=== PATIENT | male | born 1980 | race Caucasian/White ===

== ENCOUNTER 2019-10-16 11:37 | Emergency (ER) | payer OTHER ==
--- NOTE | 2019-10-16 12:34 | ED ---
HPI Chest Pain - HPI Summary HPI Summary: The patient is a 39-year-old male presenting to [facility] with a chief complaint of right anterior chest pain onset over the last 5-6 weeks. He reports that in August 2019, he had an abscess in the left neck, which needed emergency surgery, and then he was later diagnosed with bacteremia. While staying in the hospital, he began to develop pain in the right chest. He was diagnosed with CHF but of unknown etiology. He notes that he contracted the infection after IV drug use. The pain in the chest, described as a lump, has worsened in the last few weeks. The pain is currently rated 5/10 in severity. Pain is aggravated by movement of the RUE. He denies any fevers, chills, calf swelling or pain. There is no known injury to the chest, he does not have a history of broken ribs on the right or endocarditis/pericarditis, and he has not injected IV drugs into the chest wall. IV drugs last used two weeks ago. He endorses a cough and intermittent painful respirations, which he attributes to smoking cessation two weeks ago. He states that he had Tylenol, Ibuprofen, and Suboxone this morning. Past medical history also significant for cervical vertebral fractures resulting in RUE swelling which he was seen at [place] for in 2016. Former smoker, no EtOH, no current substance use. Medications reviewed. Allergies noted. - History of Current Complaint Chief Complaint: EDChestWallPain Time Seen by Provider: 10/16/19 12:11 Hx Obtained From: Patient Onset/Duration: Started Weeks Ago, Worse Since - last 2-3 weeks Timing: Intermittent Initial Severity: Mild Current Severity: Moderate Pain Intensity: 5 Pain Scale Used: 0-10 Numeric Chest Pain Location: Right Anterior Chest Pain Radiates: No Character: Heaviness Aggravating Factor(s): Movement - of RUE Alleviating Factor(s): Nothing Associated Signs and Symptoms: Positive: Chest Pain, Cough, Other: - painful respirations. Negative: Fever, Chills, Calf Pain/Swelling - Allergy/Home Medications Allergies/Adverse Reactions: Allergies Allergy/AdvReac Type Severity Reaction Status Date / Time No Known Allergies Allergy Verified 10/16/19 12:41 Home Medications: Home Medications Acetaminophen TAB* [Tylenol TAB*] 325 mg PO Q4H PRN 10/16/19 [History Confirmed 10/16/19] Atomoxetine(NF) [Strattera(NF)] 80 mg PO DAILY 10/16/19 [History Confirmed 10/16] Buprenorp/Nalox 2-0.5 MG SL TB [Suboxone 2-0.5 mg SL TAB*] 1 tab SL DAILY [History Confirmed 10/16/19] Escitalopram * [Lexapro *] 20 mg PO DAILY 10/16/19 [History Confirmed 10/16/19] Ibuprofen TAB* [Advil TAB*] 200 mg PO Q6H PRN 10/16/19 [History Confirmed ] Metoprolol Succinate XL TAB* [Toprol XL TAB*] 50 mg PO DAILY 10/16/19 [History Confirmed 10/16/19] Multivitamins/Minerals TAB* [Theragran/minerals TAB*] 1 tab PO DAILY 10/16/19 [ History Confirmed 10/16/19] Nicotine PATCH 21 MG/24 HR* 21 mg TRANSDERM DAILY 10/16/19 [History Confirmed ] Pravastatin (NF) [Pravachol (NF)] 20 mg PO BEDTIME 10/16/19 [History Confirmed 10/16/19] PMH/Surg Hx/FS Hx/Imm Hx Endocrine/Hematology History: Denies: Hx Diabetes Cardiovascular History: Reports: Hx Congestive Heart Failure Musculoskeletal History: Reports: Hx of Fracture(s) - vertebral C4-5 - Surgical History Surgical History: Yes Surgery Procedure, Year, and Place: neck abscess Infectious Disease History: Yes Infectious Disease History: Denies: Traveled Outside the [place] in Last 30 Days - Family History Known Family History: Negative: Diabetes, Renal Disease - Social History Hx Substance Use: Yes Review of Systems Negative: Fever, Chills Positive: Chest Pain - right anterior Positive: Cough, Other - painful rsepirations Negative: Myalgia - calf, Edema All Other Systems Reviewed And Are Negative: Yes Physical Exam - Summary Physical Exam Summary: Constitutional: Well-developed, Well-nourished, Alert. (-) Distressed Skin: Warm, Dry HENT: Normocephalic; Atraumatic Eyes: Conjunctiva normal Neck: Musculoskeletal ROM normal neck. (-) JVD, (-) Stridor, (-) Tracheal deviation Cardio: Rhythm regular, rate normal, Heart sounds normal; Intact distal pulses; The pedal pulses are 2+ and symmetric. Radial pulses are 2+ and symmetric. (-) Murmur Pulmonary/Chest wall: Effort normal. Right anterior chest wall tender to palpation, (-) Respiratory distress, (+) Faint wheezing b/l, (-) Rales Abd: Soft, (-) tenderness, (-) Distension, (-) Guarding, (-) Rebound Musculoskeletal: Swelling in the region of the lower pectoris muscle, No erythema, No ecchymosis, No crepitus Lymph: (-) Cervical adenopathy Neuro: Alert, Oriented x3 Psych: Mood and affect Normal Triage Information Reviewed: Yes Vital Signs On Initial Exam: Initial Vitals Temp Pulse Resp BP Pulse Ox 96.2 F 69 16 141/87 100 10/16/19 11:39 10/16/19 11:39 10/16/19 11:39 10/16/19 11:39 10/16/19 11:39 Vital Signs Reviewed: Yes Procedures - Sedation Patient Received Moderate/Deep Sedation with Procedure: No - Incision and Drainage Right Anterior Chest Site: right anterior chest wall Anesthesia: Lidocaine - 1%, 4ccs Instrument(s): Scalpel Packing: Other - small amount of blood and pus obtained, wound culture pending Diagnostics - Vital Signs Vital Signs Temp Pulse Resp BP Pulse Ox 10/16/19 11:39 96.2 F 69 16 141/87 100 - Laboratory Result Diagrams: 10/16/19 12:34 10/16/19 12:34 Lab Statement: Any lab studies that have been ordered have been reviewed, and results considered in the medical decision making process. - Radiology CXR Radiology Interpretation Completed By: Radiologist Summary of Radiographic Findings: Impression: No acute pulmonary or cardiac process evident. ED physician has reviewed this report. - Ultrasound Soft Tissue US Ultrasound Interpretation Completed By: Radiologist Summary of Ultrasound Findings: Impression: 1. Medial to the pectoralis musculature corresponding with the region of swelling and redness within the subcutaneous tissue plane there is a irregularly margined 2.5 x 1.3 x 2.0 cm complex fluid collection margin by hyperemic tissue suspicious for early abscess formation. Extensive surrounding soft tissue edema. ED physician has reviewed this report. Re-Evaluation - Re-Evaluation First Eval Re-Evaluation Time: 15:10 Comment: We discussed results and plan for discharge. Chest Pain Course/Dx - Course Course Of Treatment: 39 y/o male presenting with intermittent right anterior CP described as a lump onset over the last 6 weeks but worse in the last 2-3 weeks. C/o cough and painful respirations but is otherwise asymptomatic. Hx significant for bacteremia secondary to IV drug use, CHF of unknown etiology. No known chest wall injury, rib fractures on the right, endocarditis/ pericarditis, or drug injection into the chest. Last used IV drugs two weeks ago. Physical exam significant for faint wheezing b/l, right anterior chest wall tender to palpation, swelling in the region of the lower pectoris muscle without erythema, ecchymosis, no crepitus. Blood work significant for slight anemia and CRP of 120.80. Negative troponin. CXR Is negative for acute pathology. Soft Tissue US reveals irregularly margined complex fluid collection with likely early abscess formation. IV access obtained. Patient administered fluids, Vancomycin, and Zosyn. I&D of the right anterior chest wall abscess using 4ccs 1% lidocaine and scalpel, small amount of blood and pus obtained, wound culture pending. Patient is safe for discharge with Rx for Keflex. Patient understands and agrees with plan. - Diagnoses Provider Diagnoses: Chest wall abscess Discharge ED - Sign-Out/Discharge Documenting (check all that apply): Patient Departure - Patient will be discharged home. - Discharge Plan Condition: Stable Disposition: HOME Prescriptions: Cephalexin CAP* [Keflex CAP*] 500 mg PO QID 7 Days #28 cap Patient Education Materials: Abscess (ED), Chest Wall Pain (ED) Referrals: [facility] [Outside] - 3 Days Additional Instructions: Please take medication as prescribed. Follow up with the on-site provider at [facility] in 2-3 days. Return to the emergency department for any new or worsening symptoms. - Billing Disposition and Condition Condition: STABLE Disposition: Home - Attestation Statements Document Initiated by Cintia: Yes Documenting Scribe: Blanche Martinez Provider For Whom Cintia is Documenting (Include Credential): Dr. Osvaldo Fernandes DO Scribe Attestation: Blanche Duran scribed for Dr. Osvaldo Fernandes DO on 10/16/19 at 1936. Scribe Documentation Reviewed: Yes Provider Attestation: The documentation as recorded by the Blanche woodard accurately reflects the service I personally performed and the decisions made by me, Dr. Osvaldo Fernandes, DO Status of Scribe Document: Viewed
[2019-10-16 12:47] LABS: ABS Basophils 0.1 10^3/ul (0-0.2); ABS Eosinophils 0.3 10^3/ul (0-0.6); ABS Lymphocytes 1.8 10^3/ul (1.0-4.8); ABS Monocytes 0.8 10^3/ul (0-0.8); ABS Neutrophils 4.1 10^3/ul (1.5-7.7); Eosinophil % 4.7 %; Hematocrit 34 % (42-52); Hemoglobin 12.2 g/dL (14.0-18.0); Lymphocyte % 25.3 %; Mean Corpuscular HGB Conc 35 g/dL (31-36); Mean Corpuscular Hemoglobin 30 pg (27-31); Mean Corpuscular Volume 85 fL (80-94); Mean Platelet Volume 7.1 fL (7.4-10.4); Platelet Count 278 10^3/uL (150-450); Red Blood Count 4.07 10^6 /uL (4.18-5.48); Red Cell Distribution Width 13 % (10-15); White Blood Count 7.2 10^3/uL (3.5-10.8)
[2019-10-16 13:01] LABS: Albumin 3.7 g/dL (3.2-5.2); BUN/Creatinine Ratio 16.3 (8-20); C Reactive Protein 120.8 mg/L (<8.01); EGFR African American 118.6 (>60); Globulin 3.8 g/dL (2-4); Potassium 4.5 mmol/L (3.5-5.0); Total Bilirubin 0.4 mg/dL (0.2-1.0); Total Protein 7.5 g/dL (6.4-8.9)
[2019-10-16] MEDS ORDERED: Vancomycin(*) 1,000 MG BAG/ADDV ONE (13:57)
[2019-10-16] MEDS ORDERED: Piperacillin/Tazobac (*) 3.375 GM BAG ONE (13:57)
[2019-10-16] MEDS: Piperacillin/Tazobac ADVAN(*) 3.375 GM in NS 0.9% 100 ML* 100 ML IVPB ONE (14:00)
[2019-10-16] MEDS: NS 0.9% 1000 ML** 1,000 ML IV ONE (14:00)
[2019-10-16] MEDS: Lidocaine 1% MPF ** 5 ML VIAL INJ ONE (14:25)
[2019-10-16] MEDS: Vancomycin(*) 1,000 MG in NS 0.9% 250 ML* 250 ML IV ONE (14:36)
[2019-10-16 17:00] VITALS: BP 117/73
--- NOTE | 2019-10-19 05:55 | ED ---
Imaging and Labs Follow Up Follow Up Type: Labs/Cultures Labs/Culture Result: Wound culture returns showing 1+ helena albicans. Patient Communication/Plan: Awaiting sensitivities, pt discharged with outpatient follow up at [facility]. Provider Diagnoses: Chest wall abscess
== END 2019-10-16 16:59 | disposition home or self-care (01) ==
LOC: ED 11:37
DX: L02.213 Cutaneous abscess of chest wall (principal); I50.9 Heart failure, unspecified; Z87.891 Personal history of nicotine dependence; Z79.899 Other long term (current) drug therapy
CPT/HCPCS: 10060; 36415; 71046; 80053; 83605; 84484; 85025; 86140; 87040; 87070; 87106; 87205; 96365; 96366; 96368; 99283; J2543; J3370